=== PATIENT | male | born 1950 | race Caucasian/White ===

== ENCOUNTER 2019-02-16 11:20 | Emergency (ER) | payer MEDICARE ==
[~2019-02-16] VITALS: Ht 182.8 cm; Wt 79.4 kg
--- NOTE | ~2019-02-16 | EKG ---
[place], [place] ELECTROCARDIOGRAM REPORT NAME: ADILSON YADAV UNIT #: [id number] ROOM: DOCTOR: EPIPHANY DRAFT REPORT BIRTHDATE: [birth year] [facility] Test Date: 2019-02-16 Test Time: 11:49:08 Pat Name: ADILSON YADAV Department: Room: Gender: Hearings Reporter: Princess Davis : 1950 Requested By: ALEXANDRA VICTORIA PA-C Order Number: [id number] Reading MD: Manuel Urias MD Measurements Intervals [place] Rate: 63 P: 43 MN: 172 QRS: 21 QRSD: 79 T: 25 QT: 407 QTc: 417 Interpretive Statements Sinus rhythm No previous ECG available for comparison Electronically Signed On 02-16-2019 13:42:15 PDT by Manuel Urias MD CM:EKGRPT:ELECTROCARDIOGRAM REPORT [id number] ALEXANDRA VICTORIA PA-C EPIPHANY DRAFT REPORT ALEXANDRA VICTORIA PA-C
[2019-02-16 12:00] LABS: BASO % 0.7 % (0.0-1.0); EOS # 0.2 10*3/uL (0.0-0.4); EOS % 3.7 % (1.0-4.0); HEMATOCRIT 42.2 % (42.0-52.0); HEMOGLOBIN 13.9 g/dl (14.0-18.0); LYMPH # 1.1 10*3/uL (1.3-4.4); MEAN CELL VOLUME 92.1 fl (80.0-94.0); MEAN CORPUSCULAR HGB 30.3 pg (27.0-31.0); MEAN CORPUSCULAR HGB CONC 32.9 g/dl (33.0-37.0); MEAN PLATELET VOLUME 9.9 fl (9.6-12.3); MONO # 0.5 10*3/uL (0.1-1.0); MONO % 11.1 % (3.0-9.0); NEUT # 2.8 10*3/uL (2.3-7.9); NEUT % 61.3 % (47.0-73.0); PLATELET COUNT AUTOMATED 221 10*3/uL (130-400); RED BLOOD COUNT 4.58 10*6/uL (4.50-5.90); RED CELL DISTRI WIDTH 12.8 % (0-14.5); WHITE BLOOD COUNT 4.6 10*3/uL (4.8-10.8)
[2019-02-16 12:10] LABS: INTERNATIONAL NORM RATIO 0.9 (2.0-3.5)
[2019-02-16 12:16] LABS: ALBUMIN 3.4 gm/dl (3.1-4.5); ALKALINE PHOSPHATASE 71 U/L (45-117); BUN 21 mg/dl (7-24); CHLORIDE 109 mmol/L (98-107); CREATININE 1.46 mg/dL (0.70-1.30); POTASSIUM 4.6 mmol/L (3.5-5.1); SGOT/AST 14 IU/L (3-35); SGPT/ALT 22 U/L (12-78); SODIUM 144 mmol/L (136-145); TOTAL PROTEIN 6.2 gm/dL (6.4-8.2)
[2019-02-16 12:21] LABS: ETHYL ALCOHOL < 3.0 mg/dl (<3); TROPONIN I < 0.015 ng/ml (<0.045)
[2019-02-16 12:53] LABS: BILIRUBIN NEGATIVE (NEGATIVE); BLOOD NEGATIVE (NEGATIVE); CLARITY CLEAR (CLEAR); COLOR YELLOW (YELLOW); GLUCOSE NEGATIVE (NEGATIVE); KETONE NEGATIVE (NEGATIVE); LEUKO ESTERASE NEGATIVE (NEGATIVE); NITRITE NEGATIVE (NEGATIVE); PH 7.5 (5.0-9.0); SPECIFIC GRAVITY 1.015 (1.005-1.030); UROBILINOGEN 0.2 E.U./dl (0.2-1.0)
[2019-02-16 13:02] LABS: EPITHELIAL CELLS 0-2
== END 2019-02-16 13:47 | disposition home or self-care (01) ==
LOC: ED 11:20
PROVIDERS: Physician Assistant
DX: G40.909 Epilepsy, unspecified, not intractable, without status epilepticus (principal); R79.1 Abnormal coagulation profile; Z88.8 Allergy status to other drugs, medicaments and biological substances